=== PATIENT | female | born 1955 | race Caucasian/White ===

== ENCOUNTER 2019-07-18 18:11 | Emergency (ER) | payer MEDICARE, BC ==
[~2019-07-18] VITALS: Ht 175.3 cm; Wt 80.0 kg
[2019-07-18 18:16] VITALS: BP 151/88
--- NOTE | 2019-07-18 18:52 | NUR ---
PT STATES SHE TAKES WARFARIN FOR AFIB. CUT LEFT THUMB 45 MIN AGO ON KITCHEN KNIFE. 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
[2019-07-18] MEDS ORDERED: TETanus/Pertussis (Acell)/Diphther VAC/PF (Tdap-Adult) 0.5ml syringe IMVAC ONE (19:45)
== END 2019-07-18 19:51 | disposition home or self-care (01) ==
LOC: ER 18:11
DX: S61.012A Laceration without foreign body of left thumb without damage to nail, initial encounter (principal); I48.20 Chronic atrial fibrillation, unspecified; Z88.2 Allergy status to sulfonamides; W26.0XXA Contact with knife, initial encounter; Y93.89 Activity, other specified; Y92.090 Kitchen in other non-institutional residence as the place of occurrence of the external cause; Y99.8 Other external cause status
CPT/HCPCS: 12001; 99282